=== PATIENT | male | born 1975 | race Caucasian/White ===

== ENCOUNTER 2021-06-16 09:36 | Emergency (ER) | payer OTHER ==
[~2021-06-16] VITALS: Ht 180.3 cm; Wt 77.1 kg
[~2021-06-16 09:36] MED LIST: KEFLEX500 M1 PO
[2021-06-16] MEDS ORDERED: OMEPRAZOLE40 MG PO (10:12)
[2021-06-16 11:51] LABS: ABSOLUTE NEUTROPHILS 2.7 thou/uL (1.4-8.2); BASOPHILS 0.8 % (0.0-2.0); EOSINOPHILS 1.7 % (0.0-3.0); HEMATOCRIT 45.5 % (42.0-52.0); HEMOGLOBIN 15.1 gm/dL (14.0-18.0); LYMPHOCYTES 22.9 % (24.0-44.0); MCH 30.8 pg (26.0-34.0); MCHC 33.2 g/dL (28.0-37.0); MONOCYTES 9.1 % (1.0-8.0); PLATELET COUNT 159 thou/uL (150-400); POLYS 65.5 % (36.0-66.0); RDW 13.2 % (10.5-14.5); WBC 4.2 thou/uL (4.0-11.0)
[2021-06-16 11:55] LABS: CALCIUM 9.3 mg/dL (8.5-10.1)
[2021-06-16 12:24] VITALS: BP 126/74
--- NOTE | 2021-06-17 08:33 | EKG ---
[place] [address] [facility] [place] [address] ELECTROCARDIOGRAM REPORT Name: RAYMUNDO JACINTO Room [facility]: [facility] [id number] Admission: 06/16/21 Attend Phys: Discharge: 06/16/21 Date of : 79 Report #: [id number] [facility] ED Test Date: 2021-06-16 Test Time: 10:03:41 Pat Name: RAYMUNDO JACINTO Department: Room: Gender: M Color Receiver: KEERTHI : 1975 Requested By: Mark Varela Order Number: [id number] MD: Randell Davila Measurements Intervals [place] Rate: 102 P: 78 NC: 147 QRS: -54 QRSD: 91 T: 63 QT: 329 QTc: 429 Interpretive Statements Sinus tachycardia Left axis deviation RSR' in V1 or V2, right VCD No previous ECG available for comparison Electronically Signed On 06-17-2021 8:33:35 [employer]IA MARKETING DIRECTOR by Randell Davila [email or web address] <ELECTRONICALLY SIGNED> By: Randell Davila MD, [facility] 06/17/21 0833 1003 1003 Randell Davila MD, FAC /EPI
== END 2021-06-16 12:25 | disposition home or self-care (01) ==
LOC: ER 09:36
PROVIDERS: Student in an Organized Health Care Education/Training Program
DX: R42 Dizziness and giddiness (principal); E86.0 Dehydration; F12.90 Cannabis use, unspecified, uncomplicated; Z79.899 Other long term (current) drug therapy